=== PATIENT | male | born 2000 | race Hispanic/Latino ===

== ENCOUNTER 2018-09-11 04:12 | Emergency (ER) | payer OTHER ==
[2018-09-11 04:17] VITALS: BMI 21.2
[2018-09-11] MEDS ORDERED: Sodium Chloride 0.9% 1,000 ML IV SCH (04:45)
[2018-09-11 04:53] LABS: BASO % 0.6 % (0.0-2.0); EOS # 0.1 K/uL (0.0-0.7); LYMPH # 1.9 K/uL (1.0-4.3); LYMPH % 29.8 % (20.0-40.0); MEAN CORPUSCULAR HEMOGLOBIN 30.1 pg (27.0-31.0); MEAN CORPUSCULAR HGB CONC 34.3 g/dL (33.0-37.0); MEAN PLATELET VOLUME 10.7 fl (7.2-11.7); MONO # 0.5 K/uL (0.0-0.8); NEUT % 61.6 % (50.0-75.0); NRBC % 0.1 % (0.0-0.0); RBC 4.97 Mil/uL (4.40-5.90); RED CELL DISTRIBUTION WIDTH 12.4 % (11.5-14.5); WHITE BLOOD COUNT 6.5 K/uL (4.8-10.8)
--- NOTE | 2018-09-11 04:55 | ED PDOC ---
HPI: Abdomen Chief Complaint (Provider): Abdominal Pain History Per: Patient History/Exam Limitations: no limitations Onset/Duration Of Symptoms: Hrs (x 4) Current Symptoms Are (Timing): Still Present Severity: Moderate Location Of Pain/Discomfort: Diffuse Quality Of Discomfort: "Pain" Associated Symptoms: Nausea. denies: Vomiting Additional Complaint(s): 18 year old male with no significant medical history presents to the ED for evaluation of progressively worsening, diffuse abdominal pain and nausea, onset 4 hours prior to arrival. Patient was asleep prior to being awoken by the pain and has no symptoms before then. Denies urinary symptoms, vomiting and changes in bowel movements. Denies history of kidney stones or known family history PMD: none provided <Hasmukh Tan - Last Filed: 09/11/18 05:59> <Devin Christina - Last Filed: 09/11/18 06:57> Time Seen by Provider: 09/11/18 04:18 Chief Complaint (Nursing): Abdominal Pain Past Medical History Reviewed: Historical Data, Nursing Documentation, Vital Signs Vital Signs: Last Vital Signs Temp 97.8 F 09/11/18 04:17 Pulse 54 L 09/11/18 04:17 Resp 18 09/11/18 04:17 BP 148/72 09/11/18 04:17 Pulse Ox 99 09/11/18 04:17 Primary Care Provider: Non [facility] Provider, - Medical History PMH: No Chronic Diseases - Surgical History Surgical History: No Surg Hx - Family History Family History: States: Unknown Family Hx <Hasmukh Tan - Last Filed: 09/11/18 05:59> Vital Signs: Last Vital Signs Temp 97.8 F 09/11/18 04:17 Pulse 54 L 09/11/18 04:17 Resp 18 09/11/18 04:17 BP 148/72 09/11/18 04:17 Pulse Ox 99 09/11/18 06:00 <Devin Christina - Last Filed: 09/11/18 06:57> - Home Medications Home Medications: Ambulatory Orders Medication Instructions Recorded Dicyclomine [Bentyl] 20 mg PO Q12 PRN #20 tab 09/11/18 - Allergies Allergies/Adverse Reactions: Allergies Allergy/AdvReac Type Severity Reaction Status Date / Time No Known Allergies Allergy Verified 09/11/18 04:16 Review of Systems ROS Statement: Except As Marked, All Systems Reviewed And Found Negative Gastrointestinal: Positive for: Abdominal Pain. Negative for: Vomiting, Melena, Hematochezia Genitourinary Male: Negative for: Dysuria, Frequency, Incontinence <Hasmukh Tan - Last Filed: 09/11/18 05:59> Physical Exam - Reviewed Nursing Documentation Reviewed: Yes Vital Signs Reviewed: Yes - Physical Exam Comments: GENERAL APPEARANCE: Patient is awake, alert, oriented x 3, in obvious moderate to severe discomfort. SKIN: Warm, diaphoretic (-) cyanosis. EYES: PERRL, EOMI (-) conjunctival pallor. ENMT: Mucous membranes moist. Airway patent: (-) stridor. Pharynx: (-) swelling, (-) erythema. NECK: (-) tenderness, (-) stiffness, (-) lymphadenopathy. CHEST AND RESPIRATORY: (-) wheezing; (-) rales, (-) rhonchi, (-) rub; breath sounds equal bilaterally. HEART AND CARDIOVASCULAR: (-) irregularity; (-) murmur, (-) gallop. ABDOMEN AND GI: Soft; Bowel sounds active (+) moderate suprapubic and RLQ tenderness (+) guarding. (-) organomegaly, (-) palpable masses BACK: no tenderness, (-)CVAT EXTREMITIES: (-) deformity, (-) edema. NEURO AND PSYCH: Mental status as above; (-) focal findings. <Heather CrisostomolarryGeraldHasmukh - Last Filed: 09/11/18 05:59> - Laboratory Results Result Diagrams: 09/11/18 04:40 09/11/18 04:40 - ECG O2 Sat by Pulse Oximetry: 99 (RA) Pulse Ox Interpretation: Normal <Heather CrisostomolarryGeraldHasmukh - Last Filed: 09/11/18 05:59> - Laboratory Results Result Diagrams: 09/11/18 04:40 09/11/18 04:40 Lab Results: Total Bilirubin 0.5 mg/dl (0.2-1.3) 09/11/18 04:40 AST 22 U/L (17-59) 09/11/18 04:40 ALT 28 U/L (21-72) 09/11/18 04:40 Alkaline Phosphatase 87 U/L (38-126) 09/11/18 04:40 Total Protein 7.3 G/DL (6.3-8.2) 09/11/18 04:40 Albumin 4.6 g/dL (3.5-5.0) 09/11/18 04:40 Globulin 2.8 gm/dL (2.2-3.9) 09/11/18 04:40 Albumin/Globulin Ratio 1.7 (1.0-2.1) 09/11/18 04:40 Lipase 41 U/L (23-300) 09/11/18 04:40 <Devin Christina - Last Filed: 09/11/18 06:57> Medical Decision Making Medical Decision Makin:34 MDM: r/o appendicitis --CT Abd & pelvis --CMP --CBC --Lipase --NS IV 1,000 mls --Toradol 30 mg IVP --Zofran 4 mg IVP --UA Pt with no relief from Toradol IV, will treat with Morphine IV pt does not want morphine at this time, will hold off for now 0600 Dr. Christina to await for CT results and dispo Scribe Attestation: Documented by Connie Sarmiento, acting as a scribe for Hasmukh Ward PA-C Provider Scribe Attestation: All medical record entries made by the Scribe were at my direction and personally dictated by me. I have reviewed the chart and agree that the record accurately reflects my personal performance of the history, physical exam, medical decision making, and the department course for this patient. I have also personally directed, reviewed, and agree with the discharge instructions and disposition <Hasmukh Tan - Last Filed: 09/11/18 05:59> Medical Decision Makin:35 CT COMMENTS: Fluid filled small bowel loops. Ileus versus developing enteritis. Prominent lymph nodes in the right lower quadrant with the largest measuring 1.3 cm. This can be reactive to an inflammatory pathology of the bowel/enteritis or may represent mild changes of mesenteric adenitis. An appendicolith is noted in the lumen of the noninflamed appendix. The liver is of uniform attenuation without mass or defect. There is no intra or extrahepatic biliary ductal dilatation. The spleen is normal. The gallbladder is within normal limits. The pancreas is of normal contour and attenuation characteristics. There is no evidence of adrenal mass. Both kidneys demonstrate prompt and equal nephrograms. The kidneys are normal in size, shape and configuration. There is no evidence of renal or ureteral mass. No renal or ureteral calculi are identified. There is no hydroureter or hydronephrosis. No evidence for appendicitis. There is no bowel wall thickening. No evidence for small or large bowel obstruction. There is no evidence of abdominal ascites or lymphadenopathy. There is no evidence of intrinsic or extrinsic bladder mass. There is no pelvic ascites or lymphadenopathy. Images of the lung bases show no evidence of pleural or parenchymal mass. There are no pleural effusions. The bony structures are free of lytic or blastic lesions. IMPRESSION: Fluid filled small bowel loops. Ileus versus developing enteritis. Prominent lymph nodes in the right lower quadrant with the largest measuring 1.3 cm. This can be reactive to an inflammatory pathology of the bowel/enteritis or may represent mild changes of mesenteric adenitis. An appendicolith is noted in the lumen of the noninflamed appendix. No CT evidence of acute appendicitis. 07:00 Patient signed out to Dr. Godinez pending patient's resolution of pain and final disposition. Mother reports patient has a similar presentation three years ago. Given 2 mg of Morphine and Bentyl. Scribe Attestation: Documented by Connie Sarmiento, acting as a scribe Sari Christina MD Provider Scribe Attestation: All medical record entries made by the Scribe were at my direction and personally dictated by me. I have reviewed the chart and agree that the record accurately reflects my personal performance of the history, physical exam, medical decision making, and the department course for this patient. I have also personally directed, reviewed, and agree with the discharge instructions and disposition <Devin Christina - Last Filed: 09/11/18 06:57> Disposition - Disposition Disposition Time: 06:00 - POA Present On Arrival: None <Hasmukh Tan - Last Filed: 09/11/18 05:59> - Patient ED Disposition Is Patient to be Admitted: Transfer of Care - Disposition Disposition: Transfer of Care Disposition Time: 07:00 Patient Signed Over To: Patti Godinez <Devin Christina - Last Filed: 09/11/18 06:57> - Clinical Impression Clinical Impression: Mesenteric adenitis - Disposition Condition: FAIR Prescriptions: Dicyclomine [Bentyl] 20 mg PO Q12 PRN #20 tab PRN Reason: abdominal pain/diarrhea Instructions: Mesenteric Lymphadenitis Forms: [employer] [facility] (Latvian)
[2018-09-11 05:02] LABS: ALB/GLOB RATIO 1.7 (1.0-2.1); ALBUMIN 4.6 g/dL (3.5-5.0); ALT/SGPT 28 U/L (21-72); AST/SGOT 22 U/L (17-59); BLOOD UREA NITROGEN 23 mg/dl (9-20); CALCIUM 9.4 mg/dL (8.4-10.2); GFR NON-AFRICAN AMERICAN > 60; LIPASE 41 U/L (23-300)
[2018-09-11] MEDS ORDERED: Iodixanol 320 MG/ML 100 ML BOTTLE IV ONE (05:12)
[2018-09-11] MEDS ORDERED: Sodium Chloride 0.9% 50 ML IV ONE (05:12)
[2018-09-11] MEDS ORDERED: Morphine 4 MG/ML VIAL ONE (06:47)
--- NOTE | 2018-09-11 07:07 | ED PDOC ---
- Laboratory Results Result Diagrams: 09/11/18 04:40 09/11/18 04:40 Lab Results: Total Bilirubin 0.5 mg/dl (0.2-1.3) 09/11/18 04:40 AST 22 U/L (17-59) 09/11/18 04:40 ALT 28 U/L (21-72) 09/11/18 04:40 Alkaline Phosphatase 87 U/L (38-126) 09/11/18 04:40 Total Protein 7.3 G/DL (6.3-8.2) 09/11/18 04:40 Albumin 4.6 g/dL (3.5-5.0) 09/11/18 04:40 Globulin 2.8 gm/dL (2.2-3.9) 09/11/18 04:40 Albumin/Globulin Ratio 1.7 (1.0-2.1) 09/11/18 04:40 Lipase 41 U/L (23-300) 09/11/18 04:40 - ECG O2 Sat by Pulse Oximetry: 99 (RA) Medical Decision Making Medical Decision Makin: Patient signed out to this provider. Revaluation. 21:00 Pt reports continued abdominal pain. On reexamination, diffuse tenderness. Morphine ordered. Accession No. : [id number] Patient Name / ID : MIGUELINA CONTRERAS / [id number] Exam Date : 09/11/2018 05:14:14 ( Approved ) Study Comment : Sex / Age : M / 18Y Creator : Lai Bell MD Dictator : Lai Bell MD Registered Nurse Renal : Speech Pathologist : Lai Bell MD Approver2 : Report Date : 09/11/2018 09:35:57 My Comment : Date of service: 09/11/2018 PROCEDURE: CT Abdomen and Pelvis with contrast HISTORY: appendicitis COMPARISON: None. TECHNIQUE: Following the intravenous administration of iodinated contrast material, a CT examination of the abdomen and pelvis was performed from the domes of the diaphragms to the symphysis pubis with reformatted datasets provided in axial, sagittal and coronal planes. Oral contrast was not administered as per referring physician request. Contrast dose: Visipaque 320, 95 cc Radiation dose: Total exam DLP = 317.7 mGy-cm. This CT exam was performed using one or more of the following dose reduction techniques: Automated exposure control, adjustment of the mA and/or kV according to patient size, and/or use of iterative reconstruction technique. FINDINGS: LOWER THORAX: Unremarkable. LIVER: Tiny lucency identified at the dome liver too small to characterize with remainder liver unremarkable no intrahepatic biliary dilatation appreciated. GALLBLADDER AND BILE DUCTS: Gallbladder distention is appreciate without mural thickening or radiodense ch olelithiasis. No pericholecystic fluid collection appreciable. PANCREAS: Unremarkable. No gross lesion or ductal dilatation. SPLEEN: Unremarkable. ADRENALS: Unremarkable. No mass. KIDNEYS AND URETERS: Unremarkable. No hydronephrosis. No solid mass. VASCULATURE: Unremarkable. No aortic aneurysm. No aortic atherosclerotic calcification or mural plaque present. BOWEL: Limited retained food is seen in the stomach. No large or small bowel obstruction. No gross mural thickening. Evaluation of the gastrointestinal tract is limited due to the lack of oral contrast administration. APPENDIX: The appendix appears normal in caliber with at least 2 intraluminal appendecolith identified. No mural thickening or pericholecystic fluid collection is definitively associated. PERITONEUM: Unremarkable. No free fluid. No free air. LYMPH NODES: Shotty central mesenteric lymph nodes are identified as well as medial to the cecum and may reflect mesenteric adenitis. BLADDER: Unremarkable. REPRODUCTIVE: Unremarkable. BONES: No acute fracture. OTHER FINDINGS: None. IMPRESSION: 1. Although multiple appendecolith are seen associated within a normal caliber appendix, there is no acute findings to suggest appendicitis at this time. Further clinical correlation is advised. 2. Potential mesenteric adenitis. 3. No bowel obstruction or gross mural thickening throughout the large and small bowel. The lack of oral contrast limits evaluation the gastrointestinal tract. Limited retained food is seen in the stomach. 11:30 Pt states pain better. Discussed findings with patient and Mother. Mother states patient had similar sxs in 2016, admitted to hospital, dx with mesenteric adenitis. Discussed option of admission to hospital for pain control, declines admission. Mother will take patient home. Disposition - Clinical Impression Clinical Impression: Mesenteric adenitis - POA Present On Arrival: None - Disposition Disposition: Routine/Home Disposition Time: 11:52 Condition: STABLE Additional Instructions: FOLLOW-UP WITH PMD FOR REEVALUATION. Prescriptions: Docusate [Colace] 100 mg PO BID #10 cap oxyCODONE/Acetaminophen [Percocet 5/325 mg Tab] 1 tab PO Q6H PRN #15 tab PRN Reason: Pain, Severe (8-10) Instructions: Opioids for Short-Term Treatment of Pain, Mesenteric Lymphadenitis Forms: [employer] [facility] (Tajik)
[2018-09-11] MEDS ORDERED: Potassium Chloride 20 mEq ER Tab PO STA (07:52)
[2018-09-11] MEDS ORDERED: Potassium Chloride 20 mEq ER Tab PO ONE (08:07)
[2018-09-11 08:29] VITALS: TEMP 97.6
--- NOTE | 2018-09-11 09:39 | CT ---
Date of service: 09/11/2018 PROCEDURE: CT Abdomen and Pelvis with contrast HISTORY: appendicitis COMPARISON: None. TECHNIQUE: Following the intravenous administration of iodinated contrast material, a CT examination of the abdomen and pelvis was performed from the domes of the diaphragms to the symphysis pubis with reformatted datasets provided in axial, sagittal and coronal planes. Oral contrast was not administered as per referring physician request. Contrast dose: Visipaque 320, 95 cc Radiation dose: Total exam DLP = 317.7 mGy-cm. This CT exam was performed using one or more of the following dose reduction techniques: Automated exposure control, adjustment of the mA and/or kV according to patient size, and/or use of iterative reconstruction technique. FINDINGS: LOWER THORAX: Unremarkable. LIVER: Tiny lucency identified at the dome liver too small to characterize with remainder liver unremarkable no intrahepatic biliary dilatation appreciated. GALLBLADDER AND BILE DUCTS: Gallbladder distention is appreciate without mural thickening or radiodense cholelithiasis. No pericholecystic fluid collection appreciable. PANCREAS: Unremarkable. No gross lesion or ductal dilatation. SPLEEN: Unremarkable. ADRENALS: Unremarkable. No mass. KIDNEYS AND URETERS: Unremarkable. No hydronephrosis. No solid mass. VASCULATURE: Unremarkable. No aortic aneurysm. No aortic atherosclerotic calcification or mural plaque present. BOWEL: Limited retained food is seen in the stomach. No large or small bowel obstruction. No gross mural thickening. Evaluation of the gastrointestinal tract is limited due to the lack of oral contrast administration. APPENDIX: The appendix appears normal in caliber with at least 2 intraluminal appendecolith identified. No mural thickening or pericholecystic fluid collection is definitively associated. PERITONEUM: Unremarkable. No free fluid. No free air. LYMPH NODES: Shotty central mesenteric lymph nodes are identified as well as medial to the cecum and may reflect mesenteric adenitis. BLADDER: Unremarkable. REPRODUCTIVE: Unremarkable. BONES: No acute fracture. OTHER FINDINGS: None. IMPRESSION: 1. Although multiple appendecolith are seen associated within a normal caliber appendix, there is no acute findings to suggest appendicitis at this time. Further clinical correlation is advised. 2. Potential mesenteric adenitis. 3. No bowel obstruction or gross mural thickening throughout the large and small bowel. The lack of oral contrast limits evaluation the gastrointestinal tract. Limited retained food is seen in the stomach. Preliminary report provided by Terri, 09/11/2018, 6:29 a.m..
[2018-09-11 10:47] LABS: URINE BILIRUBIN NEGATIVE (NEGATIVE); URINE BLOOD NEGATIVE (NEGATIVE); URINE CLARITY CLEAR (Clear); URINE COLOR YELLOW (YELLOW); URINE GLUCOSE (UA) NEG (NEGATIVE); URINE LEUKOCYTE ESTERASE NEG Leu/uL (Negative); URINE PROTEIN NEGATIVE (NEGATIVE); URINE UROBILINOGEN 0.2-1.0 mg/dL (0.2-1.0)
[2018-09-11] MEDS ORDERED: Sodium Chloride 0.9% 1,000 ML IV STA (10:56)
[2018-09-11 12:06] VITALS: BP 128/78; PULSE 78; RESP 20
[2018-09-12 21:34] VITALS: O2SAT 99
== END 2018-09-11 12:15 | disposition home or self-care (01) ==
LOC: H.ER 04:12
DX: I88.0 Nonspecific mesenteric lymphadenitis (principal); Z79.899 Other long term (current) drug therapy
CPT/HCPCS: 74177; 80053; 81003; 83690; 85025; 96374; 96375; 96376; 99285; J1885; J2270; J2405; J7030; Q9967